=== PATIENT | female | born 1975 | race Two or more races ===

== ENCOUNTER 2022-08-19 14:12 | Outpatient (CLI) | payer SELFPAY | END 2022-08-19 23:59 | disposition home or self-care (01) | LOC: WOU 14:12 | PROVIDERS: ATTEND Surgery | DX: I96 Gangrene, not elsewhere classified (principal); E11.9 Type 2 diabetes mellitus without complications; Z79.84 Long term (current) use of oral hypoglycemic drugs; E66.9 Obesity, unspecified; Z68.29 Body mass index [BMI] 29.0-29.9, adult; E78.49 Other hyperlipidemia; M79.641 Pain in right hand | CPT/HCPCS: G0463 ==